=== PATIENT | male | born 1980 ===

== ENCOUNTER → 2022-04-05 06:58 | Outpatient (CLI) | payer BC, SELFPAY ==
--- NOTE | ~2022-04-05 | MR_ITS ---
EXAMINATION: MR ankle LT wo con DATE: 04/05/2022 07:43 INDICATION: Left ankle pain TECHNIQUE: Magnetic resonance imaging (MRI) of the left ankle was performed without intravenous contr ast. Sequences included sagittal, coronal, and axial proton-density weighted fast spin echo without a nd with fat saturation. COMPARISON: None. FINDINGS: Medial ankle ligaments: Thickening and increased signal and disorganized appearance to the superficial deltoid ligament and l oss of the normally well-defined striated pattern to the deep deltoid ligament without significant serrato rrounding soft tissue edema consistent with scarring related to chronic sprains. The spring ligament complex remains normal. Thickening and increased signal of the anterior talofibular ligament without significant Lateral ankle ligaments: The anterior and posterior inferior tibiofibular ligaments are normal. surrounding edema also consist ent with scarring related to chronic sprain. The calcaneofibular and posterior talofibular ligaments are normal. Tendons: Small plantar calcaneal spur and tiny enthesopathic ossicle at the calcaneal insertion of the distal Achilles tendon. There is mild distal Achilles tendinosis without discrete tear. Mild tendinopathy an d longitudinal split tear of the peroneus brevis tendon just distal to the tip of the lateral malleol us. The peroneus longus tendon is normal. The tibialis anterior and extensor hallucis longus and exte nsor digitorum longus tendons are normal. The tibialis posterior, flexor digitorum longus and flexor hallucis longus tendons are normal. Plantar fascia: Latter aponeurosis is normal. Bones/other: Metallic magnetic field artifact at 2 locations along the lateral side of the distal fibular metaphys is and medial side of the distal tibial metaphysis on either side of the tract extending across the d istal tibia and fibular metaphyses. Appearance suggests prior tightrope type distal tibiofibular synd esmotic fixation. Bone alignment is normal. No fracture. Moderate osteoarthritis with high-grade chondromalacia at the left ankle joint. This includes deep chondral ulceration with underlying subarticular edema-like honorio ow signal change at the tibial plafond and anterior talar dome, the latter with mild cortical irregul arity. Subarticular cystlike change at the anterior talar dome. There are also small marginal osteoph ytes at both sides of the joint space. Additional minimal to mild osteoarthritis throughout the joint s in the mid and forefoot. Lisfranc ligament complex is normal. Sinus Tarsi and tarsal tunnel are unr emarkable. Fluid: Small joint effusion and synovitis at the right ankle joint. This surrounds a few small loose osteoch ondral bodies at the anterior recess of the joint space. No other abnormal fluid collections. IMPRESSION: 1. Chronic medial and lateral ankle sprains with scarring at the superficial and deep deltoid ligamen t and at the anterior talofibular ligament and changes of prior distal tibiofibular tightrope type sy ndesmotic fixation. 2. Moderate osteoarthritis with high-grade chondromalacia at the left ankle joint. 3. Mild tendinopathy and longitudinal split tear of the peroneus brevis tendon. Reviewed, dictated and finalized at location A. IMPRESSION: 1. Chronic medial and lateral ankle sprains with scarring at the superficial an d deep deltoid ligament and at the anterior talofibular ligament and changes of prior distal tibiofibular tightrope type syndesmotic fixation. 2. Moderate osteoarthritis with high-grade chondromalacia at the left ankle rey nt. 3. Mild tendinopathy and longitudinal split tear of the peroneus brevis tendon.
== END ==
PROVIDERS: PCP Family Medicine; Visit Provider Physician Assistant
DX: M19.072 Primary osteoarthritis, left ankle and foot (principal); S93.492A Sprain of other ligament of left ankle, initial encounter; X58.XXXA Exposure to other specified factors, initial encounter
CPT/HCPCS: 73721